=== PATIENT | female | born 1925 | race Caucasian/White ===

== ENCOUNTER 2017-04-02 12:17 | Emergency (ER) | payer OTHER ==
[~2017-04-02] VITALS: Ht 165.1 cm; Wt 71.7 kg
--- NOTE | ~2017-04-02 | EKG ---
[place] [address] 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
[2017-04-02] MEDS ORDERED: XARELTO10 M1 PO (13:12)
[2017-04-02] MEDS ORDERED: LIPITOR10 MG PO (13:12)
[2017-04-02] MEDS ORDERED: CLARITIN10 MG PO (13:12)
[2017-04-02] MEDS ORDERED: PATADAY2.5 ML OP (13:13)
[2017-04-02] MEDS ORDERED: TENORMIN25 MG PO (13:13)
[2017-04-02] MEDS ORDERED: NORVASC10 MG PO (13:13)
[2017-04-02] MEDS ORDERED: FOLIC ACID1 MG PO (13:14)
[2017-04-02] MEDS ORDERED: HYDROCHLOROTH12.5 M1 PO (13:14)
[2017-04-02 13:44] LABS: ABSOLUTE NEUTROPHILS 4.9 thou/uL (1.4-8.2); BASOPHILS 1.1 % (0.0-2.0); EOSINOPHILS 3.1 % (0.0-3.0); HEMATOCRIT 35.8 % (37.0-47.0); HEMOGLOBIN 12.1 gm/dL (12.0-15.0); LYMPHOCYTES 22.8 % (24.0-44.0); MCH 32.6 pg (26.0-34.0); MCHC 33.9 g/dL (28.0-37.0); MONOCYTES 7.8 % (1.0-8.0); PLATELET COUNT 204 thou/uL (150-400); POLYS 65.2 % (36.0-66.0); RBC 3.73 mil/uL (4.20-5.00); RDW 13.8 % (10.5-14.5); WBC 7.5 thou/uL (4.0-11.0)
[2017-04-02 13:49] LABS: MANUAL DIFF NO
[2017-04-02 13:53] LABS: CALCIUM 9.5 mg/dL (8.5-10.1); CREATININE 1.4 mg/dL (0.6-1.0); POTASSIUM 4.1 mmol/L (3.5-5.1)
[2017-04-02 14:55] VITALS: BP 157/55
== END 2017-04-02 14:56 | disposition home or self-care (01) ==
LOC: ER 12:17 → EDBD 12:17 → ER 14:56
PROVIDERS: Physician Assistant
DX: R60.9 Edema, unspecified (principal); T50.905A Adverse effect of unspecified drugs, medicaments and biological substances, initial encounter; I10 Essential (primary) hypertension; F10.99 Alcohol use, unspecified with unspecified alcohol-induced disorder; E11.9 Type 2 diabetes mellitus without complications; Z86.73 Personal history of transient ischemic attack (TIA), and cerebral infarction without residual deficits; Z90.710 Acquired absence of both cervix and uterus; Z91.040 Latex allergy status; Z88.5 Allergy status to narcotic agent; Y92.89 Other specified places as the place of occurrence of the external cause